=== PATIENT | male | born 1965 | race African-American/Black ===

== ENCOUNTER 2018-01-05 14:59 | Inpatient (IN) | payer OTHER ==
[~2018-01-05] VITALS: Ht 165.1 cm; Wt 63.5 kg
[~2018-01-05 14:59] MED LIST: AMLO10TA PO; BEN50 PO; BENA40TA17 PO; CLON0.1T42 PO; FAMO-90 PO; GABA600T7 PO; HYDR4TAB11 PO; LABE300T19 PO; LYR50 PO; MULT-967 PO; ONDA8TAB13 PO; PROC10TA41 PO; SEVE0.8P PO; TRAM50TA1 PO; [UNRECOGNIZED DRUG - CODE] PO
[2018-01-05 15:00] VITALS: BP 112/73
--- NOTE | 2018-01-05 15:01 | NUR ---
[facility]OCK[facility] ALS TO ER BED 08
--- NOTE | 2018-01-05 15:05 | NUR ---
MAR. PATIENT PRESENTS TO ED WITH ABD PAIN AND N/V/D X1 DAY . PT STATES HE MISSED HIS DIALYSIS TREATMENT MONDAY AND MONDAY . SKIN IS PINK/WARM/DRY; AAOX4 WITH EVEN AND STEADY GAIT; LUNGS CLEAR BL; HR EVEN AND REGULAR; PT DENIES ANY FEVER, CP, SOB, OR COUGH AT THIS TIME; PATIENT STATES PAIN OF 10/10 AT THIS TIME; VSS; PATIENT POSITIONED FOR COMFORT; HOB ELEVATED; BEDRAILS UP X2; BED DOWN. ER MD MADE AWARE OF PT STATUS.
[2018-01-05] MEDS ORDERED: ONDANSETRON 4 MG/2 ML VIAL IVP ONE (15:15)
[2018-01-05] MEDS ORDERED: ONDANSETRON 4 MG ODT PO ONE (15:30)
[2018-01-05] MEDS ORDERED: ONDANSETRON 4 MG TAB ONE (15:39)
[2018-01-05] MEDS ORDERED: ALBUTEROL 0.083% 2.5 MG/3 ML NEBU INH ONE ×2 (15:50→18:30)
[2018-01-05] MEDS ORDERED: INSULIN REGULAR, HUMAN 100 UNIT/ML VIAL IVP ONE (15:50)
[2018-01-05] MEDS ORDERED: DEXTROSE 50% 50 ML SYR IVP ONE ×3 (15:50→18:33)
[2018-01-05] MEDS ORDERED: SODIUM BICARBONATE 8.4% PFS 50 MEQ/50 ML SYR IVP ONE (15:50)
[2018-01-05] MEDS ORDERED: CALCIUM GLUCONATE 10% 1000 MG/10 ML VIAL IVP ONE (15:50)
[2018-01-05] MEDS ORDERED: SODIUM POLYSTYRENE 15 GM/60 ML UDBTL PR ONE (15:50)
[2018-01-05 17:34] LABS: EOSINOPHILS # (AUTO) 0.4 K/uL (0-0.4); EOSINOPHILS % (AUTO) 3.8 % (0.0-4.0); HEMATOCRIT 27.3 % (36-52); HEMOGLOBIN 8.7 g/dL (12.0-18.0); LYMPHOCYTES # (AUTO) 1.4 K/uL (2.0-11.5); LYMPHOCYTES % (AUTO) 11.7 % (20.5-51.1); MEAN CORPUSCULAR HEMOGLOBIN 31 pg (27-31); MEAN CORPUSCULAR HGB CONC 32 g/dL (33-37); MEAN CORPUSCULAR VOLUME 97.6 fL (80-94); MONOCYTES # (AUTO) 0.5 K/uL (0.8-1.0); MONOCYTES % (AUTO) 4.5 % (1.7-9.3); NEUTROPHILS # (AUTO) 9.2 K/uL (1.8-7.7); PLATELET COUNT (AUTO) 245 K/uL (140-450); RED CELL DISTRIBUTION WIDTH 19.2 % (11.6-13.7); WHITE BLOOD COUNT (AUTO) 11.5 K/uL (4.8-10.8)
[2018-01-05 18:10] LABS: PROTHROMBIN TIME 13.3 secs (10.8-13.4)
[2018-01-05 18:14] LABS: ALBUMIN 2.8 g/dL (3.4-5.0); ANION GAP 18.8 (8-16); CARBON DIOXIDE 22.6 mmol/L (21-32); POTASSIUM 4.4 mmol/L (3.5-5.1); TOTAL BILIRUBIN 0.4 mg/dL (0.0-1.0)
[2018-01-05] MEDS ORDERED: ZOLPIDEM 5 MG TAB PO PRN (18:15)
[2018-01-05] MEDS ORDERED: HYDROcodone/APAP 5/325 MG 1 TAB TAB PO PRN (18:15)
[2018-01-05] MEDS ORDERED: DOCUSATE SODIUM 100 MG GELCAP PO PRN (18:15)
[2018-01-05] MEDS ORDERED: ACETAMINOPHEN 325 MG TAB PO PRN (18:15)
[2018-01-05] MEDS ORDERED: ONDANSETRON 4 MG/2 ML VIAL IM/IVP PRN (18:15)
[2018-01-05] MEDS ORDERED: LORazepam 2 MG/ML VIAL IM/IVP PRN (18:15)
[2018-01-05 18:18] LABS: CREATININE 11.6 mg/dL (0.7-1.3)
--- NOTE | 2018-01-05 18:29 | NUR ---
PT FOUND TO BE SEIZING IN ROOM, EDMD MADE AWARE.
[2018-01-05] MEDS ORDERED: LORazepam 2 MG/ML VIAL IVP ONE (18:30)
--- NOTE | 2018-01-05 18:30 | NUR ---
PATIENT SEIZURE STARTED AND LASTED FOR 5 MINUTES. 2MG ATIVAN GIVEN AND 2 AMPS OF D50 GIVEN IVP.
[2018-01-05] MEDS ORDERED: LORazepam 2 MG/ML VIAL ONE (18:34)
[2018-01-05] MEDS ORDERED: INSULIN LISPRO SLIDING SCALE 100 UNITS/ML VIAL SUBQ PRN (18:50)
--- NOTE | 2018-01-05 18:55 | NUR ---
GAVE REPORT TO TELE NURSE FOR CONTIUED CARE. PATIENT SLEEPING AND STABLE.
[2018-01-05] MEDS ORDERED: ALBUTEROL SULFATE/IPRATROPIU 3 ML SOL IH PRN (19:05)
[2018-01-05] MEDS ORDERED: METOCLOPRAMIDE 10 MG/2 ML INJ VIAL IVP PRN (19:05)
[2018-01-05] MEDS ORDERED: diphenhydrAMINE 50 MG CAP PO SCH (19:10)
[2018-01-05] MEDS ORDERED: cloNIDine 0.1 MG TAB PO PRN (19:10)
[2018-01-05 19:14] LABS: CHOL/HDL RATIO 2.3 (1-4.5); HDL CHOLESTEROL 53 mg/dL (40-60); LDL (CALC) 52 mg/dL (60-100); MAGNESIUM 2.4 mg/dL (1.8-2.4); PHOSPHORUS 5.2 mg/dL (2.5-4.9); THYROID STIMULATING HORMONE 7.42 uIU/mL (0.34-3.74); TRIGLYCERIDES 98 mg/dL (30-150)
--- NOTE | 2018-01-05 19:15 | NUR ---
RECEIVED PT FROM DAY SHIFT RN CORINNE FOR CONTINUITY OF CARE. PT IS NOT ALERT, ON 2L O2 VIA NASAL CANNULA. PT IS UNABLE TO MAKE NEEDS KNOWN, UNABLE TO FOLLOW COMMANDS. PT BREATHS EQUAL AND UNLABORED. PT UNABLE TO AMBULATE. PT HAS A 22G IV TO LEFT FOREARM, ASYMPTOMATIC AND INTACT. VITAL SIGNS WITHIN NORMAL LIMITS. NO SIGNS OF DISTRESS NOTED AT THIS TIME. BED IN LOWEST POSITION, BED ALARM ON. CALL LIGHT WITHIN REACH, WILL CONTINUE TO MONITOR.
--- NOTE | 2018-01-05 19:45 | NUR ---
APPLIED RESTRICTED EXTREMITY ARMBAND TO RIGHT AND LEFT ARMS. CHANGED GOWN TO YELLOW GOWN, AND ASKED DR ROSEN IF PT WAS NOT ALERT AT BASELINE. DR SAID PT WAS ALERT IN ER AND HAD SEIZURE AFTERWARDS PT SEEMS TO BE IN POSTICTAL STATE.
[2018-01-05 20:00] VITALS: BP 100/67
[2018-01-05] MEDS: NACL 0.9% 1,000 ML IV SCH (20:15)
--- NOTE | 2018-01-05 20:15 | NUR ---
CHECKED PT BLOOD SUGAR TWICE AND BOTH TIMES THE RESULT JUST SHOWED LO BLOOD SUGAR LESS THAN 10. ADMINISTERED DEXTROSE 50% INJECTION.
[2018-01-05] MEDS: DEXTROSE 50% 50 ML SYR IVP PRN (20:16)
[2018-01-05] MEDS: BLOOD GLUCOSE MONITORING 1 DEV DEV FS SCH (20:23)
[2018-01-05 20:39] LABS: FREE T4 (FREE THYROXINE) 0.62 ng/dL (0.76-1.46); VALPROIC ACID < 3 ug/ml (50-100)
--- NOTE | 2018-01-05 21:30 | NUR ---
CALLED PT'S NIECE BOO VALENTE TO REQUEST CONSENT FOR PT TO RECEIVE HEMODIALYSIS BOO SCHUMACHER VERBBALIZED UNDERSTANDING AN CONSENTED TO PT RECEIVING DIALYSIS/
[2018-01-05] MEDS ORDERED: OSMITROL 25% 12.5 GM/50 ML VIAL IV PRN (22:50)
--- NOTE | 2018-01-05 22:50 | NUR ---
DIALYSIS NURSE HERE TO START DIALYSIS ON PT. CALLED DR BOSCH TO REQUEST ORDER FOR MANNITOL STATED IN DIALYSIS ORDER. SAID OK TO ORDER IS ON ORDER. NURSE ABIGAIL ALSO SAID TO ORDER COMPREHENSIVE HEPATITIS PANEL. PUT IN ORDERS AND CALLED CRANE MANAGER YOSELIN TO BRING MANNITOL.
[2018-01-05] MEDS ORDERED: OSMITROL 25% 12.5 GM/50 ML VIAL IV ONE (23:36)
[2018-01-06] VITALS: BP_SYST 117; BP_SYST 152; BP_DIAS 49; BP_DIAS 64
--- NOTE | 2018-01-06 | NUR ---
RECEIVED REPORT FROM DAY SHIFT RN, FOR CONTINUITY OF CARE. PT IS A/OX4, ON 2L O2 VIA NASAL CANNULA. PT IS ABLE TO MAKE NEEDS KNOWN, ABLE TO FOLLOW COMMANDS. PT BREATHS EQUAL AND UNLABORED. PT SKIN IS INTACT, AND BARRERA CATHETER IN PLACE DRAINING YELLOW URINE TO GRAVITY. PT UNABLE TO AMBULATE. PT HAS A 22G IV TO LEFT FOREARM, ASYMPTOMATIC AND INTACT. DISCUSSED PLAN OF CARE WITH PT, PT VERBALIZED UNDERSTANDING. VITAL SIGNS WITHIN NORMAL LIMITS. PT STABLE, NO SIGNS OF DISTRESS NOTED AT THIS TIME. BED IN LOWEST POSITION, BED ALARM ON. CALL LIGHT WITHIN REACH, WILL CONTINUE TO MONITOR.
--- NOTE | 2018-01-06 01:30 | NUR ---
DIALYSIS DONE NOW, WITH 2.5L OUTPUT. VITAL SIGNS WITHIN NORMAL LIMITS. PT STABLE, NO SIGNS OF DISTRESS NOTED AT THIS TIME. BED IN LOWEST POSITION, BED ALARM ON. CALL LIGHT WITHIN REACH, WILL CONTINUE TO MONITOR.
[2018-01-06 04:00] VITALS: BP 159/104
[2018-01-06] MEDS: DEXTROSE 50% 50 ML SYR IVP PRN (04:06)
--- NOTE | 2018-01-06 04:06 | NUR ---
PT BLOOD SUGAR 31, ADMINISTERED DEXTROSE 50% ABBOJECT INJECTION, PT TOLERATED WELL.
[2018-01-06] MEDS: MORPHINE SULFATE 4 MG/ML SYR IVP PRN ×5 (05:37→23:36)
[2018-01-06] MEDS ORDERED: FAMOTIDINE 20 MG TAB ONE (06:03)
[2018-01-06] MEDS: BLOOD GLUCOSE MONITORING 1 DEV DEV FS SCH ×4 (06:10→20:07)
--- NOTE | 2018-01-06 06:18 | NUR ---
ADMINISTERED SCHEDULED MEDICATION, PT TOLERATED WELL. BLOOD GLUCOSE IS 87
--- NOTE | 2018-01-06 06:47 | NUR ---
PATIENT HAS BEEN SCREENED AND CATEGORIZED HIGH NUTRITION RISK. PATIENT WILL BE SEEN WITHIN 1-2 DAYS OF ADMISSION. 01/07/18-01/08/18 HALLIE GREENE MS, RDN
[2018-01-06] MEDS ORDERED: FAMOTIDINE 20 MG TAB PO SCH (07:00)
[2018-01-06 07:14] LABS: T4 (THYROXINE) 4.1 ug/dL (4.5-12.0)
--- NOTE | 2018-01-06 07:47 | NUR ---
ENDORSED PT TO DAY SHIFT RN FOR CONTINUITY OF CARE. PT IN STABLE CONDITION.
--- NOTE | 2018-01-06 07:48 | NUR ---
RECEIVED REPORT FROM JACK SPINNER NURSE. PT LYING IN BED SLEEPING AROUSABLE BY VOICE. A/A/OX2, COOPERATIVE RESPIRATIONS EVEN AND UNLABORED. 2L O2 VIA NC. MULTIPLE SKIN LESIONS NOTED BILATERAL LE, SKIN TEAR ON LEFT UA DRESSING DRY AND INTACT. LUNGS CTA ON ALL LOBES, IV SITE INTACT PATENT AND INFUSING IVF PER ORDERS. RIGHT UA AV FISTULA NOTED, THRILL FELT, BRUING HEARD. LEFT UA OLD FISTULA NO LONGER WORKING. REVIEWED PLAN OF CARE WITH PT. SAFETY MEASURES IN PLACE, WILL CONTINUE TO MONITOR.
[2018-01-06 08:00] VITALS: BP 147/77
[2018-01-06] MEDS ORDERED: SEVELAMER CARBONATE 0.8 GM PO SCH (08:00)
[2018-01-06] MEDS ORDERED: LISINOPRIL 10 MG TAB PO SCH (09:00)
[2018-01-06] MEDS ORDERED: NON-FORMULARY ITEM (Benazepril Hydrochloride (Benazepril) 40 MG) PO SCH (09:00)
[2018-01-06] MEDS ORDERED: BENAZEPRIL 20 MG TAB PO SCH (09:00)
[2018-01-06] MEDS ORDERED: LABETALOL 100 MG TAB PO SCH (09:00)
[2018-01-06] MEDS ORDERED: [UNRECOGNIZED DRUG - OTHER] PO SCH (09:00)
[2018-01-06] MEDS ORDERED: amLODIPine 5 MG TAB PO SCH (09:00)
[2018-01-06] MEDS: traMADol 50 MG TAB PO SCH ×3 (09:19→17:12)
[2018-01-06 09:42] LABS: BASOPHILS % (AUTO) 0.2 % (0.0-2.0); EOSINOPHILS # (AUTO) 0.4 K/uL (0-0.4); EOSINOPHILS % (AUTO) 3.5 % (0.0-4.0); HEMATOCRIT 28.3 % (36-52); LYMPHOCYTES % (AUTO) 9.3 % (20.5-51.1); MEAN CORPUSCULAR HEMOGLOBIN 31 pg (27-31); MEAN CORPUSCULAR HGB CONC 32 g/dL (33-37); MEAN CORPUSCULAR VOLUME 97.3 fL (80-94); MONOCYTES # (AUTO) 1.3 K/uL (0.8-1.0); NEUTROPHILS # (AUTO) 8.3 K/uL (1.8-7.7); PLATELET COUNT (AUTO) 246 K/uL (140-450); RED BLOOD CELL COUNT(AUTO) 2.91 MIL/uL (4.20-6.10)
[2018-01-06] MEDS: ASPIRIN 81 MG TAB.CHEW PO SCH (09:47)
[2018-01-06] MEDS: PIPER/TAZO 2.25GM/D5W PREMIX 50 ML IV SCH ×2 (09:47→21:21)
[2018-01-06 09:56] LABS: CARBON DIOXIDE 22.7 mmol/L (21-32); POTASSIUM 5.7 mmol/L (3.5-5.1)
[2018-01-06 09:58] LABS: MAGNESIUM 2.2 mg/dL (1.8-2.4); PHOSPHORUS 5.1 mg/dL (2.5-4.9)
[2018-01-06 10:15] LABS: CREATININE 10.5 mg/dL (0.7-1.3)
[2018-01-06] MEDS: LACTOBACILLUS RHAMNOSUS GG 1 EACH CAP PO SCH (10:21)
[2018-01-06] MEDS: MULTIVITAMIN 1 TAB PO SCH (10:21)
[2018-01-06] MEDS: PREGABALIN 50 MG CAP PO SCH (10:21)
--- NOTE | 2018-01-06 10:22 | NUR ---
SCHEDULED MEDICATIONS DUE GIVEN. PATIENT REFUSED ALL BP MEDICATIONS THIS MORNING SAYING THAT "IT LOWERS MY BP TOO LOW". WILL CONTINUE TO MONITOR.
[2018-01-06] MEDS ORDERED: diphenhydrAMINE 50 MG CAP PO PRN (11:47)
[2018-01-06 12:00] VITALS: BP 100/62
[2018-01-06] MEDS ORDERED: SODIUM POLYSTYRENE 15 GM/60 ML UDBTL PO SCH (12:00)
[2018-01-06] MEDS: SEVELAMER CARBONATE 800 MG TAB PO SCH ×2 (12:58→17:23)
--- NOTE | 2018-01-06 13:02 | NUR ---
PATIENT LYING DOWN IN BED SLEEPING, AROUSABLE BY VOICE. NO DISTRESS NOTED. SCHEDULED MEDICATIONS DUE GIVEN. SAFETY MEASURES IN PLACE, CALL LIGHT WITHIN REACH. WILL CONTINUE TO MONITOR.
[2018-01-06 16:00] VITALS: BP 117/67
[2018-01-06] MEDS ORDERED: SEVELAMER CARBONATE 800 MG TAB PO ONE (17:24)
--- NOTE | 2018-01-06 17:50 | NUR ---
PATIENT LYING DOWN IN BED. NO DISTRESS NOTED. BS = 65, APPLE JUICE GIVEN TO PATIENT AND DINNER TRAY TO ARRIVE SOON. WILL CONTINUE TO MONITOR.
[2018-01-06] MEDS: NACL 0.9% 1,000 ML IV SCH (18:11)
--- NOTE | 2018-01-06 19:22 | NUR ---
RECEIVED REPORT FROM DAY SHIFT NURSE, MELISSA AT PT BEDSIDE. PT IN STABLE CONDITION. PT CURRENTLY RECEIVING HD. PT IS AAO X4. PT IS ON NC 1L. RESPIRATIONS ARE EVEN AND UNLABORED. IV ACCESS IN L FA 22G. IV IS PT AND INTACT. PT HAS R FA FISTULA. PT HAS LESIONS TO BILATERAL LE AND TO L FA. PT C/O PAIN AT THIS TIME AND WILL BE MEDICATED. SEIZURE PRECAUTIONS IN PLACE. BED IS LOCKED, LOW POSITION WITH SIDE RAILS UP X2. CALL LIGHT IS WITHIN REACH. BOARD UPDATED. WILL CONTINUE TO MONITOR PT.
--- NOTE | 2018-01-06 19:22 | NUR ---
GAVE REPORT TO TRAFFIC DIRECTOR NURSE FOR CONTINUITY OF CARE. PATIENT IN STABLE CONDITION.
[2018-01-06 20:00] VITALS: BP 115/59
--- NOTE | 2018-01-06 21:05 | NUR ---
HD FINISHED. 2.6 WAS TAKEN OUT. PT IN STABLE CONDITION. WILL CONTINUE TO MONITOR.
--- NOTE | 2018-01-06 21:21 | NUR ---
SCHEDULE MEDICATION ADMINISTERED. INSULIN COVERAGE GIVEN FOR BS OF 173. PT C/O NAUSEA, ZOFRAN GIVEN. PT TOLERATED WELL. WILL CONTINUE TO MONITOR.
--- NOTE | 2018-01-06 21:50 | NUR ---
OB SAMPLE COLLECTED AND SENT TO LAB.
--- NOTE | 2018-01-06 23:36 | NUR ---
PT C/O PAIN. MORPHINE GIVEN. PT TOLERATED WELL. WILL CONTINUE TO MONITOR.
[2018-01-07] VITALS: BP 101/51
--- NOTE | 2018-01-07 00:36 | NUR ---
PT NOW ASLEEP IN BED. NO SIGNS OR SYMPTOMS OF DISTRESS. WILL CONTINUE TO MONITOR.
--- NOTE | 2018-01-07 02:30 | NUR ---
PT ASLEEP IN BED. NO SIGNS OR SYMPTOMS OF DISTRESS. WILL CONTINUE TO MONITOR.
--- NOTE | 2018-01-07 03:45 | NUR ---
NO CHANGE IN CONDITION. PT HAS NO SIGNS OR SYMPTOMS OF DISTRESS. WILL CONTINUE TO MONITOR.
[2018-01-07 04:00] VITALS: BP 82/43
--- NOTE | 2018-01-07 05:00 | NUR ---
PT REQUESTING PAIN MEDICATION BUT BP IS LOW. INFORMED MD AND MD TO PUT IN ORDERS. WILL CONTINUE TO MONITOR PT.
[2018-01-07] MEDS: BLOOD GLUCOSE MONITORING 1 DEV DEV FS SCH ×2 (05:42→11:30)
[2018-01-07] MEDS: DEXTROSE 50% 50 ML SYR IVP PRN (05:44)
[2018-01-07] MEDS ORDERED: LORazepam 2 MG/ML VIAL IVP SCH (05:45)
--- NOTE | 2018-01-07 05:45 | NUR ---
PT BS 55, DEXTROSE 50% GIVEN. PT TOLERATED WELL. WILL CONTINUE TO MONITOR.
--- NOTE | 2018-01-07 06:07 | NUR ---
PT BS RECHECKED, 128. PT SHOWING NO SIGNS OR SYMPTOMS OF DISTRESS. WILL CONTINUE TO MONITOR.
--- NOTE | 2018-01-07 07:05 | NUR ---
ENDORSED PT TO DAY SHIFT NURSE FOR CONTINUITY OF CARE. PT IN STABLE CONDITION.
--- NOTE | 2018-01-07 07:06 | NUR ---
RECEIVED REPORT FROM NIGHT NURSE. PT LYING IN BED. RESPIRATIONS EVEN AND UNLABORED. IV SITE INTACT AND PATENT. SKIN DRY, ULE SKIN TEAR, MULTIPLE LESIONS NOTED ON BLE. REVIEWED PLAN OF CARE WITH PT, PT UNDERSTOOD PLAN REVIEWED. SAFETY MEASURES IN PLACE. CALL LIGHT AT BEDSIDE. WILL CONTINUE TO MONITOR.
[2018-01-07 08:00] VITALS: BP 92/56
[2018-01-07 08:17] LABS: HEMATOCRIT 25.4 % (36-52); HEMOGLOBIN 8.3 g/dL (12.0-18.0); MEAN CORPUSCULAR HEMOGLOBIN 32 pg (27-31); MEAN CORPUSCULAR HGB CONC 33 g/dL (33-37); PLATELET COUNT (AUTO) 196 K/uL (140-450); RED BLOOD CELL COUNT(AUTO) 2.62 MIL/uL (4.20-6.10); RED CELL DISTRIBUTION WIDTH 18.9 % (11.6-13.7); WHITE BLOOD COUNT (AUTO) 8.5 K/uL (4.8-10.8)
[2018-01-07 08:35] LABS: MAGNESIUM 2.2 mg/dL (1.8-2.4); PHOSPHORUS 7.9 mg/dL (2.5-4.9)
[2018-01-07] MEDS: SEVELAMER CARBONATE 800 MG TAB PO SCH (08:37)
[2018-01-07] MEDS: PREGABALIN 50 MG CAP PO SCH (08:38)
[2018-01-07] MEDS: LACTOBACILLUS RHAMNOSUS GG 1 EACH CAP PO SCH (08:38)
[2018-01-07 08:40] LABS: ANION GAP 19.2 (8-16); POTASSIUM 5.2 mmol/L (3.5-5.1)
[2018-01-07] MEDS: ASPIRIN 81 MG TAB.CHEW PO SCH (08:40)
[2018-01-07] MEDS: MULTIVITAMIN 1 TAB PO SCH (08:40)
[2018-01-07] MEDS: PIPER/TAZO 2.25GM/D5W PREMIX 50 ML IV SCH (08:42)
[2018-01-07 08:51] LABS: BASOPHILS % (MANUAL) 0 % (0-2); EOSINOPHILS % (MANUAL) 5 % (0-4); LYMPHOCYTES % (MANUAL) 14 % (20-46); MONOCYTES % (MANUAL) 11 % (5-12)
[2018-01-07 08:54] LABS: CREATININE 10.1 mg/dL (0.7-1.3)
[2018-01-07] MEDS: traMADol 50 MG TAB PO SCH ×3 (09:00→17:00)
[2018-01-07] MEDS ORDERED: VIT-B COMP/VIT-C/FOLIC ACID 1 TAB PO SCH (10:00)
[2018-01-07] MEDS ORDERED: predniSONE 10 MG TAB PO SCH (10:00)
[2018-01-07] MEDS ORDERED: CALCIUM GLUCONATE 10% 2,000 MG in NACL 0.9% 50 ML IV SCH (10:00)
[2018-01-07] MEDS ORDERED: MORPHINE SULFATE 2 MG/ML SYR IVP PRN (10:09)
--- NOTE | 2018-01-07 10:10 | NUR ---
PATIENT LYING DOWN IN BED SLEEPING, AROUSABLE BY VOICE. NO DISTRESS NOTED. CONDITION UNCHANGED. WILL CONTINUE TO MONITOR.
[2018-01-07] MEDS ORDERED: SYN.075 PO (11:48)
[2018-01-07] MEDS ORDERED: ALBU3SOL83 IH (11:48)
[2018-01-07] MEDS ORDERED: ASPI81CT95 PO (11:48)
[2018-01-07] MEDS ORDERED: MORP2SOL18 IVP (11:48)
[2018-01-07] MEDS ORDERED: ATI2I IM/IVP (11:48)
[2018-01-07] MEDS ORDERED: PRED10TA5 PO (11:48)
[2018-01-07] MEDS ORDERED: ACET-1182 PO (11:48)
[2018-01-07] MEDS ORDERED: ONDA2SOL45 IM/IVP (11:48)
[2018-01-07] MEDS ORDERED: ZOLP5TAB1 PO (11:48)
[2018-01-07] MEDS ORDERED: METO5SOL24 IVP (11:48)
[2018-01-07] MEDS ORDERED: DOCU-299 PO (11:48)
[2018-01-07] MEDS ORDERED: PROC10I IV (11:48)
[2018-01-07] MEDS ORDERED: NEP PO ×2 (11:48)
[2018-01-07] MEDS ORDERED: LACT10CA PO (11:48)
[2018-01-07] MEDS ORDERED: ACET-9525 PO (11:48)
[2018-01-07] MEDS ORDERED: [UNRECOGNIZED DRUG - CODE] IV (11:48)
[2018-01-07] MEDS ORDERED: PIPE50SO5 IV (11:48)
[2018-01-07 12:00] VITALS: BP 114/57
--- NOTE | 2018-01-07 12:57 | NUR ---
PT LYING IN BED EATING LUNCH. SCHEDULED MEDICATION GIVEN. WILL CONTINUE TO MONITOR.
--- NOTE | 2018-01-07 15:12 | NUR ---
ENEDINA MENDIETACOUNTER CASER FROM [facility] CALLED AND GAVE PATIENT A ROOM 116B, ACCEPTING MD WILL BE DR. ROJAS. NOTIFIED BERRY CHARGE NURSE.
[2018-01-07] MEDS ORDERED: GLUC-805 MC (15:25)
[2018-01-07] MEDS ORDERED: D50SYR IV (15:25)
[2018-01-07] MEDS ORDERED: DEXTROSE 50% 50 ML SYR IVP PRN (15:25)
[2018-01-07] MEDS ORDERED: RANEX500 PO (15:39)
[2018-01-07 16:00] VITALS: BP 121/61
[2018-01-07] MEDS ORDERED: BLOOD GLUCOSE MONITORING 1 DEV DEV FS SCH (16:30)
--- NOTE | 2018-01-07 16:48 | NUR ---
PATIENT LYING DOWN IN BED, NO DISTRESS NOTED. DENIES ANY PAIN. TRANSFER INSTRUCTIONS TO [facility] PROVIDED TO PATIENT AND EXPLAINED REASON WHY. PATIENT VERBALIZED UNDERSTANDING AND ANSWERED ALL OF PATIENT'S QUESTIONS REGARDING TRANSFER. PATIENT VERBALIZED COMPLETE UNDERSTANDING. TRIED TO START IV ON LEFT FA OLD IV SITE WAS LEAKING. MULTIPLE RN'S TRIED ON MST UNIT AND UNSUCCESSFULLY ABLE TO START NEW IV LINE PATIENT IS A HARD STICK. DISCHARGE PAPERWORK SIGNED. CALLED [facility] AND GAVE REPORT TO INNA HAND. ANSWERED ALL OF YAZAN'S QUESTIONS REGARDING TRANSFER. NOTIFIED YAZAN OF [facility] PICKUP TIME AT 1630. [facility] AWAITING FOR PATIENT TO ARRIVE. WILL CONTINUE TO MONITOR.
--- NOTE | 2018-01-07 16:55 | NUR ---
PATIENT'S YOVANI CURRY CALLED AND NOTIFIED HER THAT PATIENT WAS BEING TRANSFERRED TO [facility]. ANTOINETTE VERBALIZED COMPLETE UNDERSTANDING AND ANSWERED ALL HER QUESTIONS. WILL CONTINUE TO MONITOR.
--- NOTE | 2018-01-07 18:10 | NUR ---
[facility] TRANSPORT ON UNIT TO TAKE PATIENT TO [facility]. ALL BELONGINGS WITH PATIENT. REPORT GIVEN TO [facility] TRANSPORTER. PATIENT TRANSFERRED TO [facility] AT THIS TIME VIA [facility] IN STABLE CONDITION.
[2018-01-07] MEDS ORDERED: RANOLAZINE 500 MG TER PO SCH (21:00)
[2018-01-08 06:09] LABS: HEPATITIS A ANTIBODY IGM Negative (Negative); HEPATITIS B CORE AB TOTAL Negative (Negative); HEPATITIS B SURFACE ANTIBODY Reactive (.); HEPATITIS B SURFACE ANTIGEN Negative (Negative)
[2018-01-08] MEDS ORDERED: LEVOTHYROXINE 0.075 MG TAB PO SCH (06:30)
[2018-01-08] MEDS ORDERED: predniSONE 10 MG TAB PO SCH (09:00)
[2018-01-08] MEDS ORDERED: VIT-B COMP/VIT-C/FOLIC ACID 1 TAB PO SCH (09:00)
[2018-01-09] MEDS ORDERED: EPOETIN ALFA 10,000 UNITS/ML VIAL IV SCH (09:00)
== END 2018-01-07 18:10 | disposition short-term general hospital (02) | DRG 871 ==
LOC: MED 14:59 → MTU 17:29
PROVIDERS: ADMIT General Practice; ATTEND General Practice
PROC: 5A1D70Z Performance of Urinary Filtration, Intermittent, Less than 6 Hours Per Day (ICD-10-PCS; principal; 2018-01-05)
PROC: 5A1D70Z Performance of Urinary Filtration, Intermittent, Less than 6 Hours Per Day (ICD-10-PCS; 2018-01-06)
DX: A41.9 Sepsis, unspecified organism (principal); N18.6 End stage renal disease; I50.43 Acute on chronic combined systolic (congestive) and diastolic (congestive) heart failure; N17.0 Acute kidney failure with tubular necrosis; E43 Unspecified severe protein-calorie malnutrition; J18.9 Pneumonia, unspecified organism; R18.8 Other ascites; I13.2 Hypertensive heart and chronic kidney disease with heart failure and with stage 5 chronic kidney disease, or end stage renal disease; K56.7 Ileus, unspecified; D68.59 Other primary thrombophilia; I43 Cardiomyopathy in diseases classified elsewhere; E11.22 Type 2 diabetes mellitus with diabetic chronic kidney disease; E87.5 Hyperkalemia; K59.00 Constipation, unspecified; G40.909 Epilepsy, unspecified, not intractable, without status epilepticus; J45.909 Unspecified asthma, uncomplicated; K21.9 Gastro-esophageal reflux disease without esophagitis; E11.40 Type 2 diabetes mellitus with diabetic neuropathy, unspecified; E83.39 Other disorders of phosphorus metabolism; D63.8 Anemia in other chronic diseases classified elsewhere; E78.5 Hyperlipidemia, unspecified; I25.10 Atherosclerotic heart disease of native coronary artery without angina pectoris; I08.1 Rheumatic disorders of both mitral and tricuspid valves; E83.51 Hypocalcemia; E11.69 Type 2 diabetes mellitus with other specified complication; Z90.49 Acquired absence of other specified parts of digestive tract; Z85.9 Personal history of malignant neoplasm, unspecified; Z79.82 Long term (current) use of aspirin; Z83.3 Family history of diabetes mellitus; Z82.49 Family history of ischemic heart disease and other diseases of the circulatory system; Z99.2 Dependence on renal dialysis; Z91.15 Patient's noncompliance with renal dialysis; Z88.5 Allergy status to narcotic agent; Z79.1 Long term (current) use of non-steroidal anti-inflammatories (NSAID); Z79.899 Other long term (current) drug therapy; Z68.23 Body mass index [BMI] 23.0-23.9, adult
CPT/HCPCS: 36415; 36600; 70450; 71045; 76604; 80048; 80053; 80156; 82140; 82150; 82272; 82550; 82803; 82948; 83036; 83605; 83690; 83735; 83880; 84100; 84134; 84436; 84439; 84443; 84484; 85025; 85610; 85730; 86704; 86706; 86708; 86709; 86803; 87040; 87081; 87340; 90935; 93005; 94640; 96374; 96375; 96376; 99285; G0482; J0610; J1815; J2060; J2150; J2270; J2405; J2543; J7030; J7512; J7613; Q0092; Q0162; Q0163